=== PATIENT | male | born 1990 | race Two or more races ===

== ENCOUNTER → 2020-11-14 | Outpatient (CLI) | payer SELFPAY | LOC: M LABSMTC 12:56 | PROVIDERS: ATTEND Pediatrics | DX: Z20.822 Contact with and (suspected) exposure to COVID-19 (principal) ==

== ENCOUNTER → 2021-01-06 | Outpatient (CLI) | payer SELFPAY | LOC: M LABSMTC 08:45 | PROVIDERS: ATTEND Pediatrics | DX: Z11.52 Encounter for screening for COVID-19 (principal) ==